=== PATIENT | male | born 1950 | race Caucasian/White ===

== ENCOUNTER 2023-09-02 11:52 | Outpatient (OUT) | payer OTHER, SELFPAY ==
--- NOTE | 2023-09-02 11:59 | ECG_ITS ---
[facility] Test Date: 2023-09-02 Pat Name: VENTURA LARA Department: Room: - Gender: Male Inspector Process: : 1950 Requested By: YORDY OH Order Number: [id number] Reading MD: KATIE GALO Measurements Intervals Era Rate: 59 P: 57 ME: 188 QRS: 7 QRSD: 163 T: 24 QT: 456 QTc: 453 Interpretive Statements SINUS BRADYCARDIA RIGHT BUNDLE BRANCH BLOCK [120+ ms QRS DURATION, UPRIGHT V1, 40+ ms S IN I/aVL/V4/V5/V6] WARNING: DATA QUALITY MAY AFFECT INTERPRETATION No previous ECG available for comparison Electronically Signed On 09-03-2023 7:04:53 EDT by KATIE GALO
--- NOTE | 2023-09-02 12:43 | P.GSHP_ITS ---
History of Present Illness History of Present Illness Chief complaint: BPH with obstruction Narrative: Patient presents for preadmission testing. The patient reports he has a Silva catheter in place for urinary retention. He denies hematuria, abdominal pain, fever, nausea, vomiting, or any other complaints. Review of Systems ROS Narrative REVIEW OF SYSTEMS: Negative except as stated in HPI, ten or more systems reviewed. Constitutional: No fever , chills, weakness ENT: No sore throat or epistaxis Cardiovascular: No edema, chest pain, palpitations, or activity intolerance Respiratory: No shortness of breath, cough, or wheezing Musculoskeletal: No joint pain or swelling Gastrointestinal: No abdominal pain, constipation, diarrhea, or vomiting Genitourinary: No dysuria or hematuria Neurological: No numbness, tingling, weakness, or headache Psychiatric: No mood changes PFSH PFSH Medical History (Updated 09/02/23 @ 12:23 by Kristine Otero NP) BPH with obstruction/lower urinary tract symptoms ?N40.1 - Benign prostatic hyperplasia with lower urinary tract symptoms (ICD- 10) ?N13.8 - Other obstructive and reflux uropathy (ICD-10) COVID-19 ?U07.1 - COVID-19 (ICD-10) Depression ?F32.A - Depression, unspecified (ICD-10) Diabetes ?E11.9 - Type 2 diabetes mellitus without complications (ICD-10) Elevated PSA ?R97.20 - Elevated prostate specific antigen [PSA] (ICD-10) Silva catheter in place ?Z97.8 - Presence of other specified devices (ICD-10) Hearing loss ?H91.90 - Unspecified hearing loss, unspecified ear (ICD-10) Hypertension ?I10 - Essential (primary) hypertension (ICD-10) Urinary retention ?R33.9 - Retention of urine, unspecified (ICD-10) Surgical History (Updated 09/02/23 @ 12:23 by Kristine Otero NP) H/O hand surgery ?Z98.890 - Other specified postprocedural states (ICD-10) History of appendectomy ?Z90.49 - Acquired absence of other specified parts of digestive tract (ICD- 10) History of colonoscopy ?Z98.890 - Other specified postprocedural states (ICD-10) History of ear surgery ?Z98.890 - Other specified postprocedural states (ICD-10) S/P cataract extraction and insertion of intraocular lens ?Z98.49 - Cataract extraction status, unspecified eye (ICD-10) ?Z96.1 - Presence of intraocular lens (ICD-10) Family History (Updated 09/02/23 @ 12:23 by Kristine Otero NP) Other Family history of diabetes mellitus Family history of heart disease Family history of hypertension Family history of stroke Social History (Updated 09/02/23 @ 12:16 by Kristine Otero NP) Within the past year, how often did you have a drink containing alcohol: never Score interpretation: A score less than 4 is consistent with normal alcohol consumption. Smoking status: Never smoker Highest level of school completed/degree received: high school graduate Meds Home Medications and Allergies Home Medications Medication Instructions Recorded Confirmed Type amlodipine 10 mg tablet 10 mg PO QAM 09/02/23 09/02/23 History glimepiride 1 mg tablet 1 mg PO QDAY 09/02/23 09/02/23 History losartan 50 mg tablet mg PO QAM 09/02/23 History tamsulosin 0.4 mg capsule 0.4 mg PO BID 09/02/23 09/02/23 History Allergies Allergy/AdvReac Type Severity Reaction Status Date / Time No Known Drug Allergies Allergy Verified 09/02/23 12:12 Exam Narrative Exam Narrative: Constitutional: Awake, alert, comfortable, well-appearing, nontoxic, interactive, vital signs as charted Head: Normocephalic, atraumatic Neck: Supple, normal appearance, normal range of motion, no meningeal signs, no lymphadenopathy Respiratory: No respiratory distress, breath sounds clear Cardiovascular: Regular rate and rhythm, strong and regular heart tones Abdomen: Nontender, normal bowel sounds, soft, no CVA tenderness Musculoskeletal: Normal gait, no swelling or edema Skin: No rashes or induration, no lesions, only visible skin inspected Neuro: No neurological deficits, normal sensation Psychiatric: Oriented ?3, normal affect Assessment and Plan Assessment and Plan (1) BPH with obstruction/lower urinary tract symptoms: (2) Elevated PSA: (3) Silva catheter in place: (4) Urinary retention: Plan Cystoscopy, transurethral resection of the prostate scheduled with Dr. Ames 09/09/2023.
[2023-09-02 12:56] LABS: Basophils Percent Auto 0.4 % (0.2-2.0); Eosinophils Absolute Auto 0.1 10^3/uL (0.0-0.7); Eosinophils Percent Auto 1.3 % (0.9-7.0); Hematocrit 45.8 % (42.0-54.0); Hemoglobin 14.9 g/dL (14.0-18.0); Immature Granulocytes Abs Auto 0.05 10^3/uL (0.00-0.03); Immature Granulocytes Pct Auto 0.5 % (0.0-0.5); Lymphocytes Absolute Auto 1.5 10^3/uL (1.2-3.8); Lymphocytes Percent Auto 14.9 % (20.5-60.0); Mean Corpuscular HGB Conc 32.5 g/dL (29.9-35.2); Mean Corpuscular Hemoglobin 29.8 pg (25.9-34.0); Mean Corpuscular Volume 91.6 fL (80.0-94.0); Mean Platelet Volume 9.5 fL (9.5-13.5); Monocytes Absolute Auto 0.9 10^3/uL (0.3-0.8); Monocytes Percent Auto 8.4 % (1.7-12.0); Neutrophils Absolute Auto 7.5 10^3/uL (1.4-6.5); Neutrophils Percent Auto 74.5 % (43.0-75.0); Platelet Count 216 10^3/uL (150-450); Red Cell Distribution Width 14.3 % (11.0-15.0); White Blood Count 10.1 10^3/uL (4.0-11.0)
[2023-09-02 13:07] LABS: INR 1.02; Partial Thromboplastin Time 28.6 sec (22.3-36.2); Prothrombin Time 10.8 sec (9.0-11.6)
[2023-09-02 13:30] LABS: Anion Gap 10.3; BUN Creatinine Ratio 14.8; Calcium 9.5 mg/dL (8.5-10.1); Carbon Dioxide 30.1 mmol/L (21.0-32.0); Chloride 103 mmol/L (98-107); Estimated GFR (African America 59 (>=60); Estimated GFR (Non-African Ame 49 (>=60); Glucose 87 mg/dL (74-106); Potassium 4.4 mmol/L (3.5-5.1); Sodium 139 mmol/L (136-145)
[2023-09-02 13:47] LABS: Prostate Specific Antigen Scrn 8.58 ng/mL (<=4.00)
== END 2023-09-02 11:53 | disposition home or self-care (01) ==
PROVIDERS: PCP Family Medicine; Visit Provider Urology
DX: Z01.810 Encounter for preprocedural cardiovascular examination (principal); Z01.812 Encounter for preprocedural laboratory examination; N40.1 Benign prostatic hyperplasia with lower urinary tract symptoms; R33.9 Retention of urine, unspecified; H91.90 Unspecified hearing loss, unspecified ear; F32.A Depression, unspecified; R31.9 Hematuria, unspecified; I10 Essential (primary) hypertension; E11.9 Type 2 diabetes mellitus without complications; R97.20 Elevated prostate specific antigen [PSA]
CPT/HCPCS: 80048; 85025; 85610; 85730; 93005; G0103; G0463

== ENCOUNTER 2023-09-09 12:29 | Day surgery (SDC) | payer OTHER, SELFPAY ==
[2023-09-02 12:41] VITALS: BP 119/63; PULSE 63; RESP 18; TEMP 36.2; O2SAT 98; BMI 29.0
[2023-09-09] VITALS (18 sets, daily range): BP systolic 110–158; BP diastolic 64–90; PULSE 69–91; RESP 10–18; TEMP 36.1–36.5; O2SAT 91–99; BMI 28.9
[2023-09-09 13:15] LABS: Glucometer 101 mg/dL (74-106)
--- NOTE | 2023-09-09 13:53 | PC.NURSE ---
2 previous IV attempts per abstract writer
[2023-09-09] MEDS: LEVOFLOXACIN IN DEXTROSE 5 % 500 MG/100 ML PIGGYBACK 100 MG IV (13:54)
[2023-09-09] MEDS: LACTATED RINGER'S SOLUTION 1,000 ML 50 ML IV (13:54)
--- NOTE | 2023-09-09 16:07 | PM.URSON ---
Urology Surgery Operative Note Operative Note Procedure Date: 09/09/23 Time Out Performed: yes Pre-op Diagnosis: benign prostatic hypertrophy with L UTS and urinary retention Post-op Diagnosis: same as pre-op Procedures performed: #1. Cystoscopy. #2. Transurethral resection of the prostate. Anesthesia: GETA Primary Surgeon: Darrel Ames Complications: none Estimated blood loss (mL): 20 Findings: large obstructing vascular lateral lobes Specimens: prostate chips Drains: 24 Serbian three-way coud? Silva catheter in the bladder to CBI Indications for Procedures: this gentleman has benign prostatic hypertrophy with bladder outlet obstructive symptoms refractory to medications. In fact, he went into urinary retention. He presents today with a Silva catheter indwelling. Endoscopically he was obstructed with capacious lateral lobes. Urodynamically he was also obstructed. He was desirous for transurethral resection of the prostate. He has signed an informed consent for this procedure after all the risks were explained. Some of these include bleeding, infection, anesthesia, retrograde ejaculation, urinary incontinence both temporary and permanent and erectile dysfunction to name a few. Detailed description of Procedure: The patient was brought to the operating room and placed on the operating room table in the supine position. SCDs were placed on the lower extremities and turned on and functioning during the entire case. Timeout was done by all parties in the room. We all agreed upon the patient's identification and the planned procedures for this patient. Genn. anesthesia was then administered. The patient was then repositioned into the modified dorsal lithotomy position. All pressure points were satisfactorily padded. Genitalia were sterilely prepped and draped in usual fashion.I started by passing a 26 Serbian Olympus resectoscope with the standard bipolar loop electrode per urethra and into the bladder. The ureteral orifices were identified and marked with the loop electrode. I then started on the median lobe and uniformly resected this down to the bladder neck level. I then resected posteriorly from the bladder neck to the veru level. The left lateral lobe was then resected in a similar fashion. This was very capacious and quite vascular. I had to switch loops and go to the simultaneous vaporizing and cutting loop to maintain hemostasis during the resection. The right lateral lobe was done in a similar manner. The anterior tissue was then done in a similar manner. The apex was then opened up. The resection bed was then coagulated with the same loop. The Rubikloud evacuator was used to get the prostate chips out of the bladder and these weree sent for permanent sections. Upon completion with the scope at the apex the prostatic urethra and bladder neck were now wide open. There was no bleeding. There were no chips remaining in the bladder. The scope was then removed. I then placed a 24 Serbian three-way coud? in the bladder. 30 mL of fluid was placed in the balloon. It was manually irrigated clear. It was taped to traction and CBI was started. The anesthetic was then reversed. He was then transferred to a [facility] bed and wheeled to PACU in stable condition.
[2023-09-09] MEDS: SOLIFENACIN SUCCINATE 10 MG TABLET PO (16:24)
[2023-09-09] MEDS: SODIUM CHLORIDE IRRIG SOLUTION 3,000 ML 3000 ML IRR ×7 (17:54→23:37)
[2023-09-09] MEDS: 0.9 % SODIUM CHLORIDE 1,000 ML 80 ML IV (18:40)
[2023-09-09] MEDS: CEFAZOLIN SODIUM/DEXTROSE,ISO 1 GM/50 ML IV.SOLN IV (18:47)
[2023-09-09 20:03] LABS: Glucometer 183 mg/dL (74-106)
[2023-09-09] MEDS: TEMAZEPAM 15 MG CAPSULE PO (23:27)
[2023-09-10] MEDS: CEFAZOLIN SODIUM/DEXTROSE,ISO 1 GM/50 ML IV.SOLN IV (00:12)
[2023-09-10] MEDS: SODIUM CHLORIDE IRRIG SOLUTION 3,000 ML 3000 ML IRR ×2 (00:13→02:51)
--- NOTE | 2023-09-10 01:36 | PC.NURSE ---
noted multiple strains of black sediment with a mucous-like membrane surrounding
[2023-09-10 02:54] VITALS: BP 124/68; PULSE 78; RESP 16; TEMP 36.6; O2SAT 94
[2023-09-10] MEDS: SOLIFENACIN SUCCINATE 10 MG TABLET PO (09:03)
== END 2023-09-10 09:30 | disposition home or self-care (01) ==
LOC: SURGOUT 16:00 → MS 16:40
PROVIDERS: Anesthesiology; PCP Family Medicine; Visit Provider Urology
PROC: (CPT 52601; principal; 2023-09-09 14:00)
DX: N40.1 Benign prostatic hyperplasia with lower urinary tract symptoms (principal); R33.8 Other retention of urine; R97.20 Elevated prostate specific antigen [PSA]; R31.9 Hematuria, unspecified; F32.A Depression, unspecified; H91.90 Unspecified hearing loss, unspecified ear; I10 Essential (primary) hypertension; E11.9 Type 2 diabetes mellitus without complications; Z79.84 Long term (current) use of oral hypoglycemic drugs; Z87.440 Personal history of urinary (tract) infections
CPT/HCPCS: 52601; 36415; 36416; 82948; 88305; J2704